=== PATIENT | male | born 1975 | race Caucasian/White ===

== ENCOUNTER 2018-06-21 06:07 | Emergency (ER) | payer OTHER ==
[~2018-06-21] VITALS: Ht 170.2 cm; Wt 66.7 kg
[2018-06-21 07:34] LABS: ALKALINE PHOSPHATASE 92 IU/L (3-129); ALT (GPT) 31 IU/L (3-49); AST (GOT) 59 IU/L (2-34); CHLORIDE 98 MEQ/L (99-109); CREATININE 0.7 MG/DL (0.6-1.3); GFR ESTIMATE (CALCULATED) > 59 mL/min/ (58.99-99999); GLUCOSE 132 mg/dL (70-99); POTASSIUM 3.8 MEQ/L (3.7-5.4); SODIUM 137 MEQ/L (136-147); TOTAL BILIRUBIN 0.5 MG/DL (0.0-1.0); TOTAL PROTEIN 6.7 G/DL (6.4-8.3); UREA NITROGEN (BUN) 8 mg/dL (9-23)
[2018-06-21 07:39] LABS: HEMATOCRIT 49.4 % (38.0-50.0); HEMOGLOBIN 17.6 G/DL (12.5-16.6); MCH 31.8 PG (29.0-34.0); MCHC 35.6 G/DL (30.0-36.0); MCV 89.3 FL (86-99); PLATELET COUNT 190 K/uL (156-360); RBC DIS.WIDTH-CV 11.6 % (11.8-14.6); RBC DIS.WIDTH-SD 37.6 % (39-53); RED BLOOD COUNT 5.53 M/uL (4.00-5.50); WHITE BLOOD COUNT 6.3 K/uL (4.1-10.2)
[2018-06-21 07:58] VITALS: BP 118/87
== END 2018-06-21 08:05 | disposition home or self-care (01) ==
LOC: EME 06:07
PROVIDERS: Nurse Practitioner Family
DX: M79.1 Myalgia (principal); T36.8X5A Adverse effect of other systemic antibiotics, initial encounter
CPT/HCPCS: 80048; 80053; 85027; 99281; 99285; J1885; J7030